=== PATIENT | male | born 2000 | race Caucasian/White ===

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

== ENCOUNTER → 2019-03-19 | Outpatient (CLI) | payer OTHER ==
[~2019-03-19] MED LIST changes: +ADDE1TAB14 PO; +ADDE25CA PO; -TRAZ-160 PO; +TRAZ-252 PO
--- NOTE | 2019-03-19 14:20 | REP ---
REASON: Dyspnea. COMPARISON: 09/07/2018. FINDINGS: The superior mediastinal structures are midline. The cardiac silhouette is unremarkable in size, shape, and position. The diaphragmatic surfaces of the lungs are regular, and the costophrenic angles are clear. The pulmonary craig are clear. The imaged osseous structures are intact. IMPRESSION: There is no acute cardiopulmonary disease. Electronically Signed by Luiz Qureshi DO 03/19/2019 02:38 P
== END ==
LOC: M SMT 11:15
PROVIDERS: ATTEND Physician Assistant
DX: R06.00 Dyspnea, unspecified (principal)

== ENCOUNTER 2019-12-12 17:35 | Emergency (ER) | payer OTHER ==
[~2019-12-12] VITALS: Ht 177.8 cm; Wt 80.0 kg
[2019-12-12 17:36] VITALS: BP 140/91
[2019-12-12] MEDS ORDERED: CYCL5TAB PO (17:41)
[2019-12-12] MEDS ORDERED: CLAR10CA3 PO (18:09)
[2019-12-12] MEDS ORDERED: PRED20TA PO (18:39)
[2019-12-12] MEDS ORDERED: diphenhydrAMINE 50MG CAP PO ONE (18:45)
[2019-12-12] MEDS ORDERED: predniSONE 20 MG TAB PO ONE (18:45)
== END 2019-12-12 18:50 | disposition home or self-care (01) ==
LOC: M ED 17:35
DX: T78.40XA Allergy, unspecified, initial encounter (principal)